=== PATIENT | female | born 1945 | race Caucasian/White ===

== ENCOUNTER 2018-07-26 16:21 | Inpatient (IN) | payer MEDICARE ==
[~2018-07-26] VITALS: Ht 167.6 cm; Wt 55.3 kg
--- NOTE | 2018-07-26 16:35 | NUR ---
PT BIBRA FROM HOME TO ER BED 11. PT C/O L HAND AND L FOOT WEAKNESS AND NUMBNESS THAT STARTED AT APPROX 1500 TODAY. 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 GOWNED AND PLACED ON MONITOR. NO FACIAL DROOP NOTED. NO OBVIOUS NEUROLOGICAL DEFICIT BRAND INSPECTOR. PT STATES LITHOTRIPSY PROCEDURE DONE YESTERDAY. AWAITING MD MEADE.
--- NOTE | 2018-07-26 16:46 | NUR ---
CODE STROKE ACTIVATED
--- NOTE | 2018-07-26 16:49 | NUR ---
PT LEFT TO CT
--- NOTE | 2018-07-26 16:49 | NUR ---
DR LAI AT BEDSIDE FOR EVAL.
[2018-07-26 16:59] LABS: BASOPHILS % (AUTO) 0.5 % (0.0-2.0); EOSINOPHILS % (AUTO) 2.4 % (0.0-6.0); HEMATOCRIT 41 % (33-45); HEMOGLOBIN 13.7 g/dL (11.5-14.8); LYMPHOCYTES # (AUTO) 1.9 /CMM (0.8-4.8); LYMPHOCYTES % (AUTO) 22.5 % (20.0-44.0); MEAN CORPUSCULAR HGB CONC 33 g/dl (31.0-36.0); MEAN CORPUSCULAR VOLUME 98 fL (82-100); MONOCYTES # (AUTO) 0.6 /CMM (0.1-1.30); MONOCYTES % (AUTO) 6.8 % (2.0-12.0); NEUTROPHILS # (AUTO) 5.7 /CMM (1.8-8.9); NEUTROPHILS % (AUTO) 67.8 % (43.0-81.0); PLATELET COUNT (AUTO) 336 /CMM (150-450); RED BLOOD CELL COUNT(AUTO) 4.19 MIL/uL (4.0-5.2); WHITE BLOOD COUNT (AUTO) 8.3 K/uL (4.3-11.0)
[2018-07-26 17:06] LABS: CALCIUM, SERUM 9.9 mg/dL (8.5-10.1); CARBON DIOXIDE 29 mmol/L (21-32); CHLORIDE 100 mmol/L (98-107); CREATININE 0.9 mg/dL (0.6-1.3); GLUCOSE 127 mg/dL (74-106); POTASSIUM 3.3 mmol/L (3.5-5.1); SODIUM SERUM 138 mmol/L (136-145); UREA NITROGEN, BLOOD 18 mg/dL (7-18)
[2018-07-26 17:14] LABS: CHOLESTEROL 360 mg/dL (<200); HDL CHOLESTEROL 65 mg/dL (40-60); LDL 247 mg/dL (0-99); TRIGLYCERIDES 219 mg/dL (30-150)
--- NOTE | 2018-07-26 17:41 | NUR ---
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
--- NOTE | 2018-07-26 17:44 | NUR ---
CALLED NURSING SUP. FOR TELE BED
--- NOTE | 2018-07-26 17:59 | NUR ---
TELE 322
[2018-07-26] MEDS ORDERED: ASPIRIN 81 MG TAB.CHEW PO ONE (18:00)
[2018-07-26] MEDS ORDERED: LEVO50TA PO (18:20)
--- NOTE | 2018-07-26 18:22 | NUR ---
TRIED TO GIVE REPORT, PLACED ON HOLD.
[2018-07-26] MEDS ORDERED: ASPIRIN 81 MG TAB.CHEW ONE (18:41)
--- NOTE | 2018-07-26 19:22 | NUR ---
REPORT TO ZEHRA MENDITEA FOR DAVID.
--- NOTE | 2018-07-26 19:32 | NUR ---
REPORT GIVEN TO YVROSE. PT AWAITING TRANSFER TO FLOOR.
[2018-07-26 19:43] LABS: CALCIUM, SERUM 9.7 mg/dL (8.5-10.1); CARBON DIOXIDE 23 mmol/L (21-32); CHLORIDE 98 mmol/L (98-107); CREATININE 0.9 mg/dL (0.6-1.3); GLUCOSE 123 mg/dL (74-106); POTASSIUM 3.3 mmol/L (3.5-5.1); SODIUM SERUM 137 mmol/L (136-145); UREA NITROGEN, BLOOD 18 mg/dL (7-18)
[2018-07-26 19:48] LABS: APPEARANCE,URINE Clear (CLEAR); BILIRUBIN,URINE Negative (NEGATIVE); BLOOD, URINE Small Ery/uL (NEGATIVE); COLOR,URINE Yellow (YELLOW); KETONES,URINE Trace (NEGATIVE); LEUKOCYTE ESTERASE ,URINE Negative (NEGATIVE); NITRITE, URINE Negative (NEGATIVE); PH,URINE 7.5 (5.0-8.0); PROTEIN,URINE Trace mg/dl (NEGATIVE); UGLUCOSE Negative (NEGATIVE); UROBILINOGEN,URINE 0.2 EU/dL (0.2)
[2018-07-26 20:00] VITALS: BP 161/96
[2018-07-26 20:00] LABS: ALANINE AMINOTRANSFERASE 29 U/L (12-78); ALBUMIN 4.3 g/dL (3.4-5.0); ALKALINE PHOSPHATASE 72 U/L (46-116); ASPARTATE AMINOTRANSFERASE 27 U/L (15-37); B-TYPE NATRIURETIC PEPTIDE 166 PG/ML (0-125); BILIRUBIN,TOTAL 0.9 mg/dL (0.2-1.0); TOTAL PROTEIN, SERUM 8.6 g/dL (6.4-8.2)
--- NOTE | 2018-07-26 20:00 | NUR ---
RECEIVE PT FROM [facility]IA [facility] AT 1943 ADMITTED TO TELEMETRY UNIT WITH RHYTHM OF SR 74 A/OX4, TOLERATING ROOM AIR 99%. HEAD TO TOE ASSESSMENT IS DONE SKIN IS INTACT. NO N/V/D. NO FOCAL DEFICITS AT THIS TIME. NO DIZZINESS. NO COMPLAIN OF CHEST PAIN AND HEADACHE. KEPT CLEAN AND DRY AND COMFORTABLE. NURSING CARE RENDERED. WILL CONTINUE TO MONITOR.
[2018-07-26 20:02] LABS: THYROID STIMULATING HORMONE 10.636 uIU/mL (0.358-3.74)
[2018-07-26 20:03] LABS: BACTERIA,URINE Few /HPF (None Seen); SQUAMOUS EPITHELIAL CELL,UR Few /HPF (None Seen); WBC,URINE 0-2 /HPF (0-3)
[2018-07-26 20:10] VITALS: BP 161/96
--- NOTE | 2018-07-26 20:18 | NUR ---
[facility] HOSPITALIST SPOKE TO CELIA MENDOZA RELAYED PT PASSED NSG SWALLOW EVAL. PER KELLY ORDER CARDIAC DIET RELAYED RECENT BLOOD PRESSURE PER KELLY ORDERED CLONIDINE 0.1 MG PO Q6 PRN FOR SBP MORE THAN 160 READ BACK AND VERIFIED ORDERS NOTED AND CARRIED OUT
[2018-07-26] MEDS ORDERED: CLONIDINE HCL 0.1 MG TABLET PO PRN (20:30)
[2018-07-26 21:20] VITALS: BP 132/77
[2018-07-26] MEDS: BLOOD SUGAR DIAGNOSTIC 1 EACH STRIP IN SCH (21:31)
--- NOTE | 2018-07-26 21:31 | NUR ---
REPORTED BLOOD SUGAR TO HOSPITALIST 158 MG/DL PT JUST ATE DINNER PER CELIA ARCE
[2018-07-27] MEDS ORDERED: BLOOD SUGAR DIAGNOSTIC 1 EACH STRIP IN SCH
[2018-07-27 04:00] VITALS: BP 114/73
[2018-07-27] MEDS: BLOOD SUGAR DIAGNOSTIC 1 EACH STRIP IN SCH ×4 (06:02→21:26)
--- NOTE | 2018-07-27 06:21 | NUR ---
TROLLEY CAR OPERATOR CLOSING NOTE ASLEEP AND EASILY AWAKEN. TOLERATING ROOM AIR 98%. SINUS JOELLE 51 IN THE TELE MONITOR. NOT IN DISTRESS, NO COMPLAIN OF PAIN. NEEDS ATTENDED AND ANTICIPATED, NO S/S OF STROKE. KEPT CLEAN AND DRY AND COMFORT. SAFETY MEASURES IN PLACE, BED IN LOW LOCKED POSITION, CALL LIGHT WITHIN EASY REACH. ENDORSE TO NEXT SHIFT CONTINUITY OF CARE
--- NOTE | 2018-07-27 07:29 | NUR ---
TUBE TESTER OPENING NOTES PATIENT IS A/OX4. RECEIVED PATIENT IN STABLE CONDITION. IN NO APPARENT DISTRESS. BEDSIDE RAILS ARE UPX2. BED IS LOCKED AND LOWERED. CALL LIGHT IS WITHIN REACH. IV LINE IS INTACT AND PATENT. WILL CONTINUE TO MONITOR PATIENT.
[2018-07-27 07:54] LABS: BASOPHILS % (AUTO) 0.7 % (0.0-2.0); EOSINOPHILS % (AUTO) 4.2 % (0.0-6.0); HEMATOCRIT 38 % (33-45); HEMOGLOBIN 12.7 g/dL (11.5-14.8); LYMPHOCYTES # (AUTO) 1.6 /CMM (0.8-4.8); LYMPHOCYTES % (AUTO) 24.6 % (20.0-44.0); MEAN CORPUSCULAR HGB CONC 33 g/dl (31.0-36.0); MEAN CORPUSCULAR VOLUME 98 fL (82-100); MONOCYTES # (AUTO) 0.6 /CMM (0.1-1.30); MONOCYTES % (AUTO) 8.6 % (2.0-12.0); NEUTROPHILS # (AUTO) 4.1 /CMM (1.8-8.9); NEUTROPHILS % (AUTO) 61.9 % (43.0-81.0); PLATELET COUNT (AUTO) 290 /CMM (150-450); RED BLOOD CELL COUNT(AUTO) 3.89 MIL/uL (4.0-5.2); WHITE BLOOD COUNT (AUTO) 6.6 K/uL (4.3-11.0)
[2018-07-27 08:00] VITALS: BP 117/77
[2018-07-27 08:03] LABS: CALCIUM, SERUM 9.3 mg/dL (8.5-10.1); CARBON DIOXIDE 29 mmol/L (21-32); CHLORIDE 102 mmol/L (98-107); CREATININE 0.9 mg/dL (0.6-1.3); GLUCOSE 96 mg/dL (74-106); POTASSIUM 4.3 mmol/L (3.5-5.1); SODIUM SERUM 136 mmol/L (136-145); UREA NITROGEN, BLOOD 23 mg/dL (7-18)
[2018-07-27] MEDS: LEVOTHYROXINE SODIUM 50 MCG TABLET PO SCH (08:03)
[2018-07-27] MEDS: ASPIRIN EC 81 MG TABLET.DR PO SCH (08:03)
[2018-07-27] MEDS ORDERED: LORAZEPAM INJ 2 MG/ML VIAL IV PRN (08:30)
--- NOTE | 2018-07-27 10:36 | NUR ---
TEXTED DR. HERNANDEZ FOR MRI APPROVAL.
--- NOTE | 2018-07-27 10:37 | NUR ---
DR. HERNANDEZ TEXTED BACK, ON HOLD FOR NOW,HE WILL LET US KNOW.
[2018-07-27 15:50] VITALS: BP 121/76
--- NOTE | 2018-07-27 18:30 | NUR ---
MS RN CLOSING NOTES PATIENT IS IN STABLE CONDITION. IN NO APPARENT DISTRESS. BEDSIDE RAILS ARE UPX2. BED IS LOCKED AND LOWERED. CALL LIGHT IS WITHIN REACH. IV LINE IS INTACT AND PATENT. ALL NEEDS WERE MET. WILL ENDORSE CARE TO DETECTIVE CHIEF NURSE FOR DAVID.
--- NOTE | 2018-07-27 19:35 | NUR ---
MS/RN OPENING NOTES PT RECEIVED AWAKE, A/OX4. SITTING UP IN BED. ON ROOM AIR, BREATHING EVEN AND UNLABORED. DENIES SOB AND PAIN. IV TO RAC PATENT AND INTACT. NEURO CHECK DONE, NO WEAKNESS/DEFICITS NOTED. NO FACIAL DROOP, SLURRED SPEECH, ALL EXTREMITIES WITH 5/5 STRENGTH. PERRLA. BED IN LOW/LOCKED POSITION WITH CALL LIGHT IN REACH. BILATERAL UPPER SIDE RAILS IN PLACE WITH HOB ELEVATED. WILL CONTINUE TO MONITOR
[2018-07-27 20:00] VITALS: BP 113/69
[2018-07-27 20:27] VITALS: BP 113/69
[2018-07-27] MEDS ORDERED: ATORVASTATIN 40 MG TABLET PO SCH (22:00)
[2018-07-27] MEDS ORDERED: SIMVASTATIN 40 MG TABLET PO SCH (22:00)
--- NOTE | 2018-07-28 02:33 | NUR ---
MS/RN ELIZABETH MENDOZA NP AT BEDSIDE TO ASSESS PT AND REVIEW CHART Addendum: 07/28/18 at 0234 by TYRA LOPES RN WRONG PT
[2018-07-28] MEDS: LEVOTHYROXINE SODIUM 50 MCG TABLET PO SCH (06:30)
[2018-07-28] MEDS: BLOOD SUGAR DIAGNOSTIC 1 EACH STRIP IN SCH ×2 (06:30→12:19)
[2018-07-28 06:37] LABS: BASOPHILS % (AUTO) 0.7 % (0.0-2.0); EOSINOPHILS % (AUTO) 5.5 % (0.0-6.0); HEMATOCRIT 39 % (33-45); HEMOGLOBIN 13.2 g/dL (11.5-14.8); LYMPHOCYTES # (AUTO) 1.7 /CMM (0.8-4.8); LYMPHOCYTES % (AUTO) 26.9 % (20.0-44.0); MEAN CORPUSCULAR HGB CONC 34 g/dl (31.0-36.0); MEAN CORPUSCULAR VOLUME 98 fL (82-100); MONOCYTES # (AUTO) 0.5 /CMM (0.1-1.30); MONOCYTES % (AUTO) 8.8 % (2.0-12.0); NEUTROPHILS # (AUTO) 3.6 /CMM (1.8-8.9); NEUTROPHILS % (AUTO) 58.1 % (43.0-81.0); PLATELET COUNT (AUTO) 296 /CMM (150-450); WHITE BLOOD COUNT (AUTO) 6.2 K/uL (4.3-11.0)
[2018-07-28 06:46] LABS: CALCIUM, SERUM 9.5 mg/dL (8.5-10.1); CARBON DIOXIDE 29 mmol/L (21-32); CHLORIDE 100 mmol/L (98-107); CREATININE 0.9 mg/dL (0.6-1.3); GLUCOSE 96 mg/dL (74-106); MAGNESIUM 2.2 mg/dL (1.8-2.4); PHOSPHORUS 4.3 mg/dL (2.5-4.9); SODIUM SERUM 136 mmol/L (136-145); UREA NITROGEN, BLOOD 20 mg/dL (7-18)
--- NOTE | 2018-07-28 07:38 | NUR ---
MS/RN CLOSING NOTES PT AWAKE, A/OX3. ON ROOM AIR, BREATHING EVEN AND UNLABORED. DENIES SOB AND PAIN. ALL EXTREMITIES WITH 5/5 STRENGTH. NO WEAKNESS/TINGLING. NO FACIAL DROOP OR SLURRED SPEECH. FREQUENT NEURO CHECKS COMPLETED. IV TO RAC PATENT AND INTACT. NO SIGNIFICANT CHANGES OVERNIGHT. ALL NEEDS MET AND SLEPT WELL DURING SHIFT. AWAITING MRI. BED REMAINS IN LOW/LOCKED POSITION WITH CALL LIGHT IN REACH. BILATERAL UPPER SIDE RAILS IN PLACE. ENDORSED TO DAY SHIFT RN DAVID.
--- NOTE | 2018-07-28 07:44 | NUR ---
MS RN OPENING NOTES RECEIVED PATIENT IN STABLE CONDITION. IN NO APPARENT DISTRESS. BEDSIDE RAILS ARE UPX2. BED IS LOCKED AND LOWERED. CALL LIGHT IS WITHIN REACH. IV LINE IS INTACT AND PATENT. WILL CONTINUE TO MONITOR PATIENT.
[2018-07-28 08:02] VITALS: BP 122/78
[2018-07-28] MEDS ORDERED: ATOR40TA PO (08:13)
[2018-07-28] MEDS ORDERED: AMLO5TAB9 PO (08:13)
[2018-07-28] MEDS ORDERED: ASPI-1152 PO (08:13)
[2018-07-28] MEDS: ASPIRIN EC 81 MG TABLET.DR PO SCH (08:54)
[2018-07-28 08:55] VITALS: BP 122/78
[2018-07-28] MEDS ORDERED: AMLODIPINE BESYLATE 5 MG TABLET PO SCH (09:00)
--- NOTE | 2018-07-28 11:51 | NUR ---
BLOOD SUGAR WAS 66. GAVE 15 GRAMS OF SUGAR. PATIENT WILL ALSO EAT LUNCH BROUGHT BY FAMILY.
--- NOTE | 2018-07-28 12:29 | NUR ---
MS WEIR FISHER NOTES PATIENT DISCHARGED IN STABLE CONDITION. IN NO APPARENT DISTRESS. EXITCARE WAS SIGNED AND PROVIDED TO THE PATIENT. BELONGINGS WERE CHECKED AND PROVIDED TO THE PATIENT. PRESCRIPTIONS WERE PROVIDED TO THE PATIENT. IV LINE AND ID BAND WERE REMOVED. ALL NEEDS WERE MET. PATIENT WAS ESCORTED OUT OF THE FACILITY VIA WHEELCHAIR BY DAYTON RANDHAWA. PATIENT WILL BE DRIVEN HOME BY SISTER EDIS. Addendum: 07/28/18 at 1231 by LOYD LIU RN SISTER'S NAME IS NOT EDIS. WHANAU SUPPORT WORKER'S NAME IS EDIS.
== END 2018-07-28 12:30 | disposition home or self-care (01) | DRG 880 ==
LOC: ER 16:21 → TELE 18:34 → MED 07-27 08:16
PROVIDERS: ADMIT Student in an Organized Health Care Education/Training Program; ATTEND Student in an Organized Health Care Education/Training Program
DX: F41.9 Anxiety disorder, unspecified (principal); E78.5 Hyperlipidemia, unspecified; E87.6 Hypokalemia; I10 Essential (primary) hypertension; Z87.442 Personal history of urinary calculi; Z87.891 Personal history of nicotine dependence; F40.240 Claustrophobia; I70.0 Atherosclerosis of aorta; J34.1 Cyst and mucocele of nose and nasal sinus
CPT/HCPCS: 36415; 70450-TC; 70496-TC; 71045-TC; 80048-TC; 80053-TC; 80061-TC; 80305; 81000-TC; 82962-TC; 83735-TC; 83880; 84100-TC; 84443-TC; 84484-TC; 85025-TC; 85652-TC; 85730-TC; 87081-TC; 92611-TC; 93307-TC; 93880-TC; 97530-TC; G0378

== ENCOUNTER 2018-07-28 21:15 | Emergency (ER) | payer MEDICARE ==
[~2018-07-28] VITALS: Ht 165.1 cm; Wt 56.7 kg
[~2018-07-28 21:15] MED LIST: AMLO5TAB9 PO; ASPI-1152 PO; ATOR40TA PO; LEVO50TA PO
[2018-07-28 21:21] VITALS: BP 162/83
[2018-07-28] MEDS ORDERED: ONDANSETRON 4 MG TAB.RAPDIS ONE (21:57)
[2018-07-28] MEDS ORDERED: SUCRALFATE 1 G TABLET ONE (21:58)
[2018-07-28] MEDS ORDERED: ONDANSETRON 4 MG TAB.RAPDIS SL ONE (22:00)
[2018-07-28] MEDS ORDERED: SUCRALFATE 1 G TABLET PO ONE (22:00)
== END 2018-07-28 22:11 | disposition home or self-care (01) ==
LOC: ER 21:19
DX: R11.10 Vomiting, unspecified (principal); R19.7 Diarrhea, unspecified; I10 Essential (primary) hypertension; F41.9 Anxiety disorder, unspecified; Z95.5 Presence of coronary angioplasty implant and graft; Z79.82 Long term (current) use of aspirin; Z87.442 Personal history of urinary calculi
CPT/HCPCS: Q0162

== ENCOUNTER 2020-09-22 01:12 | Emergency (ER) | payer BC, MEDICARE, OTHER ==
[~2020-09-22 01:12] MED LIST changes: +AMLO-212 PO; -AMLO5TAB9 PO; -ASPI-1152 PO; +ASPI-1420 PO
[2020-09-22] MEDS ORDERED: MAG HYDROX/AL HYDROX/SIMETH 30 ML UDC ONE (01:38)
[2020-09-22] MEDS ORDERED: FAMOTIDINE (20 MG) 20 MG TABLET ONE (01:39)
--- NOTE | 2020-09-22 01:40 | NUR ---
PT CAME IN FOR UPPER ABD PAIN AFTER EATING FOOD BROUGHT BY HER SISTER. PT DENIES N/V,D. A/O X 4, RR EVEN AND UNLABORED, PT STABLE ON RA, PT CONNCETED TO MONITOR AND POX, IV LINE ESTABLISHED, LEFT WRIST 20G.
[2020-09-22 01:50] LABS: BASOPHILS % (AUTO) 0.7 % (0.0-2.0); EOSINOPHILS % (AUTO) 4.3 % (0.0-6.0); HEMATOCRIT 40 % (33-45); HEMOGLOBIN 13.3 g/dL (11.5-14.8); LYMPHOCYTES % (AUTO) 32.9 % (20.0-44.0); MEAN CORPUSCULAR HGB CONC 34 g/dl (31.0-36.0); MEAN CORPUSCULAR VOLUME 95 fL (82-100); MONOCYTES # (AUTO) 0.5 /CMM (0.1-1.30); MONOCYTES % (AUTO) 8.6 % (2.0-12.0); NEUTROPHILS # (AUTO) 3.2 /CMM (1.8-8.9); NEUTROPHILS % (AUTO) 53.5 % (43.0-81.0); PLATELET COUNT (AUTO) 318 /CMM (150-450); RED BLOOD CELL COUNT(AUTO) 4.18 MIL/uL (4.0-5.2)
[2020-09-22] MEDS ORDERED: MAG HYDROX/AL HYDROX/SIMETH 30 ML UDC PO ONE (02:00)
[2020-09-22] MEDS ORDERED: FAMOTIDINE (20 MG) 20 MG TABLET PO ONE (02:00)
[2020-09-22 02:06] LABS: ALANINE AMINOTRANSFERASE 26 U/L (12-78); ALBUMIN 4.3 g/dL (3.4-5.0); ALKALINE PHOSPHATASE 78 U/L (46-116); ASPARTATE AMINOTRANSFERASE 27 U/L (15-37); BILIRUBIN,DIRECT 0.1 mg/dL (0.0-0.2); CALCIUM, SERUM 9.6 mg/dL (8.5-10.1); CARBON DIOXIDE 28 mmol/L (21-32); CHLORIDE 101 mmol/L (98-107); CREATININE 0.9 mg/dL (0.6-1.3); GLUCOSE 126 mg/dL (74-106); POTASSIUM 3.6 mmol/L (3.5-5.1); SODIUM SERUM 136 mmol/L (136-145); TOTAL PROTEIN, SERUM 8.5 g/dL (6.4-8.2); UREA NITROGEN, BLOOD 20 mg/dL (7-18)
[2020-09-22 02:32] LABS: LIPASE 85 U/L (73-393)
--- NOTE | 2020-09-22 03:42 | NUR ---
Patient discharged to home in stable condition. Written and verbal after care instructions given. Patient verbalizes understanding of instruction.ambulatory with a steady gait.
--- NOTE | 2020-09-22 04:02 | NUR ---
PATIENT PICKED UP BY FAMILY, PATIENT AMBULATORY, IN NO ACUTE DISTRESS.
[2020-09-22 04:03] VITALS: BP 130/79
== END 2020-09-22 04:04 | disposition home or self-care (01) ==
LOC: ER 01:13
DX: R10.13 Epigastric pain (principal); I10 Essential (primary) hypertension; F41.9 Anxiety disorder, unspecified; Z98.890 Other specified postprocedural states; Z87.442 Personal history of urinary calculi; Z79.82 Long term (current) use of aspirin; Z79.899 Other long term (current) drug therapy
CPT/HCPCS: 36415; 71045-TC; 76705-TC; 80048-TC; 80076-TC; 83690-TC; 84484-TC; 85025-TC